=== PATIENT | female | born 1975 | race Caucasian/White ===

== ENCOUNTER 2023-07-16 12:33 | Outpatient (CLI) | payer OTHER, SELFPAY | END 2023-07-16 12:34 | disposition home or self-care (01) | LOC: NFLDREF 07-18 12:16 | PROVIDERS: PCP Physician Assistant Medical; Referring Provider Physician Assistant Medical; Visit Provider Obstetrics & Gynecology | DX: Z01.818 Encounter for other preprocedural examination (principal); N93.9 Abnormal uterine and vaginal bleeding, unspecified; N92.1 Excessive and frequent menstruation with irregular cycle; E03.8 Other specified hypothyroidism | CPT/HCPCS: 84439; 84443 ==

== ENCOUNTER 2023-08-19 10:23 | Outpatient (CLI) | payer OTHER, SELFPAY | END 2023-08-19 10:24 | disposition home or self-care (01) | LOC: NFLDREF 08-21 06:06 | PROVIDERS: PCP Physician Assistant Medical; Referring Provider Physician Assistant Medical; Visit Provider Obstetrics & Gynecology | DX: E03.8 Other specified hypothyroidism (principal) | CPT/HCPCS: 84439; 84443; 86376 ==

== ENCOUNTER 2023-09-23 10:48 | Outpatient (CLI) | payer OTHER, SELFPAY | END 2023-09-23 10:49 | disposition home or self-care (01) | LOC: NFLDREF 09-24 05:53 | PROVIDERS: PCP Physician Assistant Medical; Referring Provider Physician Assistant Medical; Visit Provider Obstetrics & Gynecology | DX: E03.8 Other specified hypothyroidism (principal) | CPT/HCPCS: 84443 ==

== ENCOUNTER 2023-09-25 07:05 | Day surgery (SDC) | payer OTHER, SELFPAY ==
[2023-09-25 07:11] VITALS: BP 135/89; PULSE 77; RESP 16; TEMP 36.4; O2SAT 97; BMI 28.0
[2023-09-25] MEDS: LACTATED RINGERS 1000 ML 1,000 ML 100 ML IV (07:35)
[2023-09-25] MEDS: SODIUM CHLORIDE 0.9 % (FLUSH) 10 ML SYRINGE IVF (07:35)
[2023-09-25 07:44] LABS: Ur HCG Qualitative* Negative (Negative)
--- NOTE | 2023-09-25 08:13 | W.PM.H&PU ---
History & Physical Update History & Physical Update H&P Reviewed and patient assessed: No changes noted H&P Updates: Preoperative diagnosis: Metrorrhagia, suspected endometrial polyp on recent pelvic US Planned procedures: Hysteroscopy, polypectomy, D&C Physical exam: General: No acute distress Psych: Alert and oriented x3, full affect Labs: UPT negative today Complete blood count 07/16/23 showing hemoglobin 13.1, hematocrit 40.1 TSH 4.340 on 08/19/2023 Repeat TSH 09/23/2023 is 3.830 Endometrial biopsy 07/16/2023: Menstrual endometrium
--- NOTE | 2023-09-25 09:29 | W.PM.GYNPROC ---
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 Upon pelvic exam under anesthesia, vagina and cervix were normal in appearance. Uterus was mobile, anteverted, and of normal size and texture. 2. Upon hysteroscopy, survey of endocervix was normal. Survey of the endometrial cavity revealed 3 polyps, the largest approximately 2.5 cm in greatest dimension. All arose from the posterior wall of the uterus. The cavity shape was normal, as were bilateral tubal ostia. The background endometrium was of normal thickness. Procedure Description: Procedure in detail: Patient was taken to the operating room with IV running. She was positioned in dorsal lithotomy position with her legs fully supported in Yellofin stirrups. Monitored anesthesia care was administered. She was prepped and draped in the usual sterile fashion. Exam under anesthesia was performed for the above-noted findings. Speculum was inserted. Cervix visualized and grasped along the anterior lip with a single-tooth tenaculum. Paracervical block was performed for total of 10 mL of 1% lidocaine. Cervix was serially dilated to accommodate the TRUCLEAR hysteroscope. This was assembled with saline inflow and outflow in place. The line was flushed of bubbles. The hysteroscope was advanced through the cervix into the endometrial cavity for the above noted findings. The tissue morcellator was then inserted through the operating channel. Window lock was performed. Under direct visualization, the endometrial polyps were removed and endometrial cavity was circumferentially curetted with the tissue morcellator. The hysteroscope and morcellator were then removed from the uterus. Tenaculum was removed from the anterior lip of cervix. Hemostasis was achieved with silver nitrate. Patient tolerated procedure well. She was taken to recovery area in stable condition.
[2023-09-25 09:35] VITALS: BP 133/75; PULSE 79; RESP 16; TEMP 36; O2SAT 98
--- NOTE | 2023-09-25 09:37 | W.ANESCHARGE ---
Anesthesia Charges Start Date/Time Anesthesia Start Date: 09/25/23 Anesthesia Start Time: 08:44 Stop Date/Time Anesthesia Stop Date: 09/25/23 Anesthesia Stop Time: 09:35
[2023-09-25 09:45] VITALS: BP 115/65; PULSE 77; RESP 16; TEMP 36.2; O2SAT 98
[2023-09-25 10:00] VITALS: BP 112/60; PULSE 75; RESP 16; TEMP 36.2; O2SAT 99
[2023-09-25 10:15] VITALS: BP 108/61; PULSE 82; RESP 16; O2SAT 97
--- NOTE | 2023-09-25 10:32 | W.ANESCHARGE ---
Anesthesia Charges Start Date/Time Anesthesia Start Date: 09/25/23 Anesthesia Start Time: 08:44 Stop Date/Time Anesthesia Stop Date: 09/25/23 Anesthesia Stop Time: 09:35
== END 2023-09-25 10:42 | disposition home or self-care (01) ==
PROVIDERS: PCP Physician Assistant Medical; Visit Provider Obstetrics & Gynecology
PROC: 0UDB8ZZ Extraction of Endometrium, Via Natural or Artificial Opening Endoscopic (ICD-10-PCS; CPT 58558; principal; 2023-09-25 08:30)
DX: N92.1 Excessive and frequent menstruation with irregular cycle (principal); N84.0 Polyp of corpus uteri
CPT/HCPCS: 58558; 00952; 36415; 81025; 86850; 86900; 86901; 88305; J1100; J1885; J2250; J2405; J2704; J3010; J7120

== ENCOUNTER 2024-01-22 13:17 | Outpatient (CLI) | payer OTHER, SELFPAY | END 2024-01-22 13:18 | disposition home or self-care (01) | LOC: NFLDREF 01-23 06:43 | PROVIDERS: PCP Physician Assistant Medical; Referring Provider Physician Assistant Medical; Visit Provider Obstetrics & Gynecology | DX: E06.3 Autoimmune thyroiditis (principal) | CPT/HCPCS: 84439; 84443 ==

== ENCOUNTER 2024-03-03 13:12 | Outpatient (CLI) | payer OTHER, SELFPAY | END 2024-03-03 13:13 | disposition home or self-care (01) | LOC: NFLDREF 03-11 11:01 | PROVIDERS: PCP Physician Assistant Medical; Referring Provider Physician Assistant Medical; Visit Provider Obstetrics & Gynecology | DX: E06.3 Autoimmune thyroiditis (principal) | CPT/HCPCS: 84443 ==

== ENCOUNTER 2024-08-27 09:26 | Outpatient (CLI) | payer OTHER, SELFPAY | END 2024-08-27 09:27 | disposition home or self-care (01) | LOC: NFLDREF 08-29 10:30 | PROVIDERS: PCP Physician Assistant Medical; Referring Provider Physician Assistant Medical; Visit Provider Obstetrics & Gynecology | DX: E06.3 Autoimmune thyroiditis (principal) | CPT/HCPCS: 84439; 84443 ==

== ENCOUNTER 2024-10-13 09:30 | Outpatient (CLI) | payer OTHER, SELFPAY | END 2024-10-13 09:31 | disposition home or self-care (01) | LOC: NFLDREF 10-18 02:39 | PROVIDERS: PCP Physician Assistant Medical; Referring Provider Physician Assistant Medical; Visit Provider Obstetrics & Gynecology | DX: E03.8 Other specified hypothyroidism (principal) | CPT/HCPCS: 84443 ==

== ENCOUNTER 2025-04-05 10:25 | Outpatient (CLI) | payer OTHER, SELFPAY | END 2025-04-05 10:26 | disposition home or self-care (01) | LOC: NFLDREF 04-07 02:15 | PROVIDERS: PCP Physician Assistant Medical; Referring Provider Physician Assistant Medical; Visit Provider Obstetrics & Gynecology | DX: E06.3 Autoimmune thyroiditis (principal) | CPT/HCPCS: 84443 ==